=== PATIENT | male | born 1985 | race Caucasian/White ===

== ENCOUNTER 2018-01-27 14:20 | Emergency (ER) | payer OTHER ==
[~2018-01-27] VITALS: Ht 187.9 cm; Wt 74.8 kg
== END 2018-01-27 16:43 ==
LOC: ED 14:20
DX: S29.9XXA Unspecified injury of thorax, initial encounter (principal); R07.81 Pleurodynia; F11.10 Opioid abuse, uncomplicated; Y04.0XXA Assault by unarmed brawl or fight, initial encounter; Y93.89 Activity, other specified; Y92.89 Other specified places as the place of occurrence of the external cause; Y99.9 Unspecified external cause status